=== PATIENT | male | born 1965 | race Caucasian/White ===

== ENCOUNTER 2021-10-22 07:52 | Day surgery (SDC) | payer OTHER, SELFPAY ==
[2021-10-18 10:07] VITALS: BMI 29.7
--- NOTE | 2021-10-21 08:55 | HO.ANESPROP2 ---
Documented by User: Avril Street NP 10/21/21 08:59 HPI - Anesthesia Eval Consult details Narrative: 56yo M for Upper Endoscopy [facility] Past Medical History Medical History Arthritis Diabetes GERD (gastroesophageal reflux disease) Hx of fracture of femur Hyperlipidemia Neuropathy PVC (premature ventricular contraction) Retinopathy Surgical History Surgical History History of exploratory laparotomy History of incisional hernia repair Hx of colonoscopy Hx of right knee surgery Social History Social History Patient Tobacco Use Status: Never used Tobacco Use of substances other than those prescribed or required for medical reasons: No Are you DNR?: No Advance Directives: No Advance Directives Information Provided: Yes Meds Allergies Allergy/AdvReac Type Severity Reaction Status Date / Time No Known Allergies Allergy Verified 10/21/21 07:25 Home Medications Medication Instructions Recorded Confirmed Last Taken Type Centrum 10/18/21 Unknown History amlodipine 10 mg tablet 1 tab PO DAILY 10/18/21 10/18/21 Unknown History aspirin 81 mg chewable tablet 81 mg PO DAILY 10/18/21 10/18/21 Unknown History atorvastatin 10 mg tablet 1 tab PO DAILY 10/18/21 10/18/21 Unknown History insulin glargine 100 unit/mL (3 32 subcut 10/18/21 Unknown History mL) subcutaneous pen (Basaglar KwikPen U-100 Insulin) insulin lispro 100 unit/mL ea subcut 10/18/21 Unknown History subcutaneous pen (Humalog KwikPen (U-100) Insulin) irbesartan 75 mg tablet 1 tab PO DAILY 10/18/21 10/18/21 Unknown History liraglutide 0.6 mg/0.1 mL (18 mg/3 1.8 mg subcut DAILY 10/18/21 10/18/21 Unknown History mL) subcutaneous pen injector (Victoza 3-Dennys) metformin 500 mg tablet,extended 4 tab PO DAILY 10/18/21 10/18/21 Unknown History release 24 hr omega 3-oyw-xwx-fish oil 1,000 mg 1 cap PO BID 10/18/21 10/18/21 Unknown History (120 mg-180 mg) capsule (Fish Oil) omeprazole 20 mg capsule,delayed 1 cap PO DAILY 10/18/21 10/18/21 Unknown History release omeprazole 20 mg capsule,delayed 20 mg PO DAILY 10/18/21 10/18/21 Unknown History release tadalafil 5 mg tablet 1 tab PO DAILY 10/18/21 10/18/21 Unknown History tamsulosin 0.4 mg capsule 1 cap PO BEDTIME 10/18/21 10/18/21 Unknown History valacyclovir 1 gram tablet 2 tab PO BID 10/18/21 10/18/21 Unknown History Exam Exam Date and Time: October 21, 2021 0855 Height,Weight and Vital Signs: Height 6 ft Weight 99.337 kg Narrative Narrative: EKG 06/2021 SR with occ PVC @ 79 LAD ECHO 07/2021 Hyperdynamic LV sys function (EF 65-75%) No signif WMA Nml LV diastolic function Nml size LV. Mild increased LV wall thickness Nml RV systolic function. Nml RV size No significant valve abn Assessment and Plan Assessment Anesthesia Assessment: Chart Reviewed Documented by User: Lon Hobbs MD 10/22/21 09:41 HPI - Anesthesia Eval Consult details Narrative: 56yo M for Upper Endoscopy recently saw cardiology , got worked up for palpitations including ECHO and Holtor's . As per patient was possibly secondary electrolyte abnormalities and improved after correction . Patient to follow-up with cardiology in 1 year . [facility] Past Medical History Medical History Arthritis Diabetes GERD (gastroesophageal reflux disease) Hx of fracture of femur Hyperlipidemia Neuropathy PVC (premature ventricular contraction) Retinopathy Family History Family history of problems with anesthesia: No Surgical History Surgical History History of exploratory laparotomy History of incisional hernia repair Hx of colonoscopy Hx of right knee surgery History of Problems with Anesthesia: No Social History Social History Patient Tobacco Use Status: Never used Tobacco Use of substances other than those prescribed or required for medical reasons: No Are you DNR?: No Advance Directives: No Advance Directives Information Provided: Yes Meds Allergies Allergy/AdvReac Type Severity Reaction Status Date / Time No Known Allergies Allergy Verified 10/21/21 07:25 Home Medications Medication Instructions Recorded Confirmed Last Taken Type Centrum 10/18/21 Unknown History amlodipine 10 mg tablet 1 tab PO DAILY 10/18/21 10/18/21 Unknown History aspirin 81 mg chewable tablet 81 mg PO DAILY 10/18/21 10/18/21 Unknown History atorvastatin 10 mg tablet 1 tab PO DAILY 10/18/21 10/18/21 Unknown History insulin glargine 100 unit/mL (3 32 subcut 10/18/21 Unknown History mL) subcutaneous pen (Basaglar KwikPen U-100 Insulin) insulin lispro 100 unit/mL ea subcut 10/18/21 Unknown History subcutaneous pen (Humalog KwikPen (U-100) Insulin) irbesartan 75 mg tablet 1 tab PO DAILY 10/18/21 10/18/21 Unknown History liraglutide 0.6 mg/0.1 mL (18 mg/3 1.8 mg subcut DAILY 10/18/21 10/18/21 Unknown History mL) subcutaneous pen injector (Victoza 3-Dennys) metformin 500 mg tablet,extended 4 tab PO DAILY 10/18/21 10/18/21 Unknown History release 24 hr omega 7-elu-kxu-fish oil 1,000 mg 1 cap PO BID 10/18/21 10/18/21 Unknown History (120 mg-180 mg) capsule (Fish Oil) omeprazole 20 mg capsule,delayed 1 cap PO DAILY 10/18/21 10/18/21 Unknown History release omeprazole 20 mg capsule,delayed 20 mg PO DAILY 10/18/21 10/18/21 Unknown History release tadalafil 5 mg tablet 1 tab PO DAILY 10/18/21 10/18/21 Unknown History tamsulosin 0.4 mg capsule 1 cap PO BEDTIME 10/18/21 10/18/21 Unknown History valacyclovir 1 gram tablet 2 tab PO BID 10/18/21 10/18/21 Unknown History Exam Airway Mallampati Class: IV TM Dist: >3cm Neck ROM: Full Loose/Missing/Broken Teeth: Yes (Poor dentition ) Heart: S1,S2 Lungs: b/l breath sounds Assessment and Plan Assessment Anesthesia Assessment: Anesthesia Plan Discussed Final Anesthetic Review Family History of Problems with Anesthesia: No History of Problems with Anesthesia: No NPO: Yes ASA Class: III Final Preanesthetic Review: Meds/Allgs Chart Reviewed, Consent Obtained/Reviewed and Anes Risks/Benef Reviewed Patient Risk: High Procedure Risk: Intermediate Anesthetic Plan Anesthetic Plan: MAC: Disposition: Standard PACU
[2021-10-22 08:05] VITALS: BMI 27.8
[2021-10-22 08:22] VITALS: BP 129/75; PULSE 80; RESP 17; TEMP 36.6; O2SAT 98
[2021-10-22 08:25] LABS: Glucose, Whole Blood 126 mg/dL (60-115)
[2021-10-22] MEDS: Lactated Ringers 1,000 ML 100 ML IVCONT (08:35)
--- NOTE | 2021-10-22 08:56 | MHC.SHP ---
Pre-Procedural Eval Section A Date of Service: 10/22/21 Section B Chief Complaint: reflux Details of Present Illness: see H&P no changes Relevant Family History (Specify if Yes): No Relevant Social History: None (see H&P) Present Medications: see Short Stay Collaborative assessment Medical History: Significant History History of Previous Operations: Relevant previous surgery/procedure and date(s) Allergies: Allergies Allergy/AdvReac Type Severity Reaction Status Date / Time No Known Allergies Allergy Verified 10/21/21 07:25 Review of Systems Sugical H&P ROS: Negative: Constitution, Cardiovascular, Respiratory, Neurological, Psychiatric, Hem-Onc, Allergic/Immunologic, Gastrointestinal, Genitourinary, Musculoskeletal, Integumentary, Endocrine and Eyes/Ears/Nose/Throat Exam Surgical H&P Exam: Normal: HEENT, Normal: Heart, Normal: Lungs, Normal: Extremities, Normal: Abdomen, Normal: Skin and Normal: Neurological Plan I have reviewed the history and physical and performed a pertinent physical examination on my patient. No changes have occurred unless specified.
--- NOTE | 2021-10-22 09:16 | P.BOP_ITS ---
Brief Operative Note Date of Service: 10/22/21 Pre-op diagnosis: gerd Post-op diagnosis: same Procedure: egd Surgeon: Kulwant León Anesthesia: MAC Was an Animal Cruelty Investigation Supervisor used for this Procedure?: No Estimated blood loss (mL): 2 Pathology: other (bxs antrum and egj) Condition: stable Disposition: PACU
[2021-10-22 09:20] VITALS: BP 126/51; PULSE 79; RESP 16; TEMP 36.1; O2SAT 99
[2021-10-22 09:35] VITALS: BP 129/71; PULSE 82; RESP 18; TEMP 36.1; O2SAT 98
--- NOTE | 2021-10-22 21:02 | OP_ITS ---
SURGEON: Kulwant León MD INDICATIONS: Gastroesophageal reflux disease. PREOPERATIVE DIAGNOSIS: POSTOPERATIVE DIAGNOSIS: PROCEDURE PERFORMED: Upper endoscopy with biopsy. ESTIMATED BLOOD LOSS: COMPLICATIONS: ANESTHESIA: ASSISTANTS: SPECIMENS: MEDICATIONS: Monitored anesthesia care. DESCRIPTION OF PROCEDURE: History and physical was performed. The risks and benefits of the procedure were explained to the patient. Informed consent was obtained. The patient was placed in left lateral decubitus position. The Olympus video gastroscope was introduced into the esophagus, stomach, and duodenum. Examination was performed and the scope was removed. He tolerated the procedure well and was returned to recovery area in stable condition. FINDINGS: 1. Esophagus: The esophagus was normal. There was no esophagitis. Biopsies were obtained from the EG junction. 2. Stomach: The stomach showed no evidence of masses, ulcers, or polyps. Antral biopsies were obtained to rule out H pylori. 3. Duodenum: The bulb and second portion were normal. IMPRESSION: Gastroesophageal reflux disease. RECOMMENDATIONS: Follow up the biopsy results. MD PEG Guerin/MISSYL / [id number]
== END 2021-10-22 10:25 | disposition home or self-care (01) ==
PROVIDERS: PCP Physician Assistant; Visit Provider Internal Medicine Gastroenterology
PROC: 0DJ08ZZ Inspection of Upper Intestinal Tract, Via Natural or Artificial Opening Endoscopic (ICD-10-PCS; CPT 43235; principal; 2021-10-22 09:00)
DX: K21.9 Gastro-esophageal reflux disease without esophagitis (principal); R68.81 Early satiety; K22.70 Barrett's esophagus without dysplasia; I49.3 Ventricular premature depolarization; E78.5 Hyperlipidemia, unspecified; E11.319 Type 2 diabetes mellitus with unspecified diabetic retinopathy without macular edema; E11.40 Type 2 diabetes mellitus with diabetic neuropathy, unspecified; Z79.4 Long term (current) use of insulin; Z79.899 Other long term (current) drug therapy; Z79.82 Long term (current) use of aspirin; Z98.890 Other specified postprocedural states
CPT/HCPCS: 43239; 82947; 88305; 88342; J3010

== ENCOUNTER 2024-05-03 10:35 | Day surgery (SDC) | payer OTHER, SELFPAY ==
--- OUTSIDE RECORDS SUMMARY | 2024-04-17 14:27 | XMS_ITS ---
Author Organization [facility] Address [address] [place] [address] Care Team Providers Care Associate Professor Of Sociology Name Role Phone LETITIA FRAGA Primary Care Provider Kulwant Ch Jr [phone] ALLERGIES No Known Allergies REASON FOR VISIT Patient presents today for an EGD/barretts MEDICATIONS Medication SIG (Take, Route, Frequency, Duration) Notes Start Date End Date Status metFORMIN HCl 500 MG 1 tablet with a lino l Orally Once a day for 30 day(s) Active Ozempic (0.25 or 0.5 MG/DOSE) 2 MG/3ML INJECT 0.5MG UNDER THE SKIN EVERY 7 DAYS Subcutaneous for 28 Active Irbesartan 150 MG 1 tablet Orally Once a day for 30 day(s) 04/15/2024 Active MiraLax (colon prep) 17 GM/SCOOP mixed with Gatorade or Crystal Light Orally begin at 5:00 p.m. the day before the procedure for 1 day 04/15/2024 Active CoQ-10 150 MG as directed Orally Active Magnesium 500 MG 1 tablet with a meal Orally Once a day for 30 day(s) Active Centrum Adults - as directed Orally Active Tadalafil 5 MG 1 tablet as needed Orally Once a day Active Atorvastatin Calcium 10 MG 1 tablet Orally Once a day Active Lantus 100 UNIT/ML as directed Subcutaneous Active Omeprazole 20 MG 1 capsule 30 minutes before morning meal Orally Once a day for 30 day(s) Active Aspirin 81 81 MG 1 tablet Orally Once a day for 30 day(s) Active Fish Oil 1000 MG 1 capsule Orally Onc e a day for 30 day(s) twice a day Active Ozempic (1 MG/DOSE) 4 MG/3ML as directed Subcutaneous Active HumaLOG 100 UNIT/ML as directed Subcutaneous Active IMMUNIZATIONS Vaccine Route Administration Date Status Comme nts Influenza Unknown 04/15/2024 Refused SOCIAL HISTORY Tobacco Use: Social History Observation Description Date Details (start date - stop date) Never Smoker NA - NA Sex Assigned At : Social History Observation Description Sex Assigned At Unknown Tobacco Use/Smoking Question Answer Notes Patient is a nonsmoker Alcohol Screen Question Answer Notes Did you have a drink contain ing alcohol in the past year? Yes How often did you have a dri nk containing alcohol in the past year? 4 or more times a week (4 points) How many drinks did you have on a typical day when you were drinking in the past year? 1 or 2 drinks (0 point) How often did you have 6 or more drinks on one occasion in the past year? Monthly (2 points) Points 6 Interpretation Positive PROBLEMS Problem Type ICD Code Onset Dates Problem Status W/U Status Risk SNOMED Code Notes Problem Colon cancer screening (Z12.11) Active confirmed 482634711 VITAL SIGNS BMI 31.33 kg/m2 04/15/2024 Blood pressure systolic 000 mm Hg 04/15/19 25 Blood pressure diastolic 00 mm Hg 025 Height 72 in 04/15/2024 Temperature 97.5 degrees Fahrenheit 04/15/19 25 Weight 231 lbs 04/15/2024 Encounters Encounter Location Date Provider Diagnosis [facility] [address] [facility] [address] [place] [id number] 04/15/2024 Kulwant León Jr Gastroesophageal reflux disease, unspecified whether esophagitis present K21.9 and Colon cancer screening Z12.11 ASSESSMENTS Encounter Date Diagnosis Assessment Notes Treatment Notes Treatment Clinical Notes 04/15/2024 Gastroesophageal reflux disease, unspecified whether esophagitis present (ICD-10 - K21.9) Colonoscopy material was printed 04/15/2024 Colon cancer screeni ng (ICD-10 - Z12.11) PLAN OF TREATMENT Medication Medication Name Sig Start Date Stop Date Notes MiraLax (colon prep) 17 GM/SCOOP mixed with Gatorade or Crystal Light Orally begin at 5:00 p.m. the day before the procedure for 1 day 04/15/2024 Treatment Notes Assessment Notes Gastroesophageal reflux dise ase, unspecified whether esophagitis present Colonoscopy material was printed Future Test Test Name Order Date UPPER GI ENDOSCOPY 04/15/2024 COLONOSCOPY 04/15/2024 Next Appt Details Provider Name:Kulwant shaikh Jr, 05/03/2024 12:20:00 PM, [address] [place] [address] , [place], [place], [phone],
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
--- OUTSIDE RECORDS SUMMARY | 2024-04-17 14:28 | XMS_ITS ---
Author Organization [facility] Address [address] [place] [address] Care Team Providers Care Medical Biller Name Role Phone Fuad Hooper Primary Care Provider Gifty Strong [phone] REASON FOR VISIT r/s 12/21 Encounters Encounter Location Date Provider Diagnosis [facility] [address] [place] [address] 12/05/2023 Gifty Pinzon Plan Of Treatment Next Appt Details Provider Name:Gifty Pinzon , 01/21/2025 01:30:00 PM, [address] [facility], [place], [address], Progress Notes * Lesley RGOB:1965 (58 yo M)Acc No.[id number]:12/05/2023 Patient:?Rafiq Rg :1965???Age:58 Y???Sex:Male [address] [facility] [place] [address] * true * Date:? Generated for Printi mansoor/Rosalba/eTransmitting on:?04/17/2024 02:28 PM EST
--- OUTSIDE RECORDS SUMMARY | 2024-04-17 14:28 | XMS_ITS ---
Author Organization [facility] Address [address] [place] [address] Care Team Providers Care Road Monkey Name Role Phone LETITIA FRAGA Primary Care Provider Dm León Jr, Kulwant Meyers REASON FOR VISIT Patient presents today for egd, barretts esophagus Encounters Encounter Location Date Provider Diagnosis [facility] [address] [place] [phone] 12/29/2023 Kulwant León Jr PLAN OF TREATMENT Next Appt Details Provider Name:Kulwant shaikh Jr, 05/03/2024 12:20:00 PM, [address] [place] [address] , [place], [place], [phone],
--- OUTSIDE RECORDS SUMMARY | 2024-04-17 14:28 | XMS_ITS ---
Author Organization [facility] Address [address] [place] [address] Care Team Providers Care Highway Patrol Pilot Name Role Phone Fuad Hooper Primary Care Provider Unavailabl e Black, Gifty Unavailable [phone] Allergies No Known Allergies REASON FOR VISIT At Risk Footcare, Painful Nail(s) aggrevated by shoes and causing difficulty standing/walking. Medications Medication SIG (Take, Route, Frequency, Duration) Notes Start Date End Date Status Curcumin 95 Active Omeprazole 20 MG 1 capsule 30 minutes before morning meal Orally Once a day for 30 day(s) Active Irbesartan 75 MG 2 tablets Orally Onc e a day for 30 day(s) Active Tadalafil 5 MG 1 tablet as needed Orally Once a day for 30 day(s) Active Aspir-81 Active Co Q 10 Active Fish Oil Active Magnesium Active Mens Multivitamin Ac tive Cephalexin Not-Takin g Basaglar KwikPen Act lillian Victoza Active metFORMIN HCl 500 MG 1 tablet with a lino l Orally Once a day for 30 day(s) Active Terbinafine HCl 250 MG 1 tablet Orally O nce a day for 7 days days then stop for 3 weeks repeat cycle for 60 days 12/05/2023 Not-Taking Terbinafine HCl 250 MG 1 tablet Orally O nce a day for 7 days days then stop for 3 weeks repeat cycle for 90 days 01/24/2023 Not-Taking HumaLOG Active Atorvastatin Calcium 10 MG 1 tablet Orally Once a day for 30 day(s) Active Social History Tobacco Use: Social History Observation Description Date Details (start date - stop date) Never Smoker NA - NA Tobacco Use/Smoking Question Answer Notes Are you a: nonsmoker Additional Findings: Tobacco Non-User Current no n-smoker Alcohol Screen Question Answer Notes Did you have a drink contain ing alcohol in the past year? Yes How often did you have a dri nk containing alcohol in the past year? 2 to 4 times a month (2 points) Points 2 Interpretation Negative Tobacco use other than smoking: Question Answer Notes Are you an other tobacco user? No Vital Signs Weight 221 lbs 02/06/2024 Encounters Encounter Location Date Provider Diagnosis [facility] [address] [facility] [place] [address] 02/06/2024 Gifty Pinzon Onychomycosis B35.1 ; Type 2 diabetes mellitus with diabetic polyneuropathy E11.42 and Foot drop, right M21.371 Assessments Encounter Date Diagnosis (ICD Code) Assessment Notes Treatment Notes Treatment Clinical Notes Section Notes 02/06/2024 Onychomycosis (ICD-10 - B35.1) Response to treatment - resolved 02/06/2024 Type 2 diabetes mellitus with diabetic polyneuropathy (ICD-10 - E11.42) 02/06/2024 Foot drop, right (ICD-10 - M21.371) Plan Of Treatment Next Appt Details Follow Up: 1 Year, Reason: Provider Name:Gifty Pinzon , 01/21/2025 01:30:00 PM, [address], [place], [address], Progress Notes * Lesley RGOB:1965 (58 yo M)Acc No.[id number]:02/06/2024 Progress Note Patient:?Baldev Rafiq Provider:?Gifty Pinzon DPM :1965???Age:58 Y???Sex:Male Gabo e:02/06/2024 Address:[address] [place], [place] [address] [id number] Pcp:Fuad Hooper Subjective: * Chief Complaints: * ???At Risk FootcarePainful N ail(s) aggrevated by shoes and causing difficulty standing/walking. * HPI: ???At Risk footcare:?Pt States Last PCP Visit:?Date?12/27/2023 ???Painful Nails:?Pt States Last PCP Visit:?Date:?12/27/2023 ?Treatments:?Lamisil , Oral Antifungal , was? successful.? * ROS:?General/Constitutional:?Nausea?denies.?Vomiting?denies.?Hunger Thirst?denies.?Loss appetite?denies.?Chills?denies.?Fatigue?denies.?Fever?denies.?Night Sweats?denies.?Unexplained weight loss?denies.?Unexplained weight gain?denies.?HEENTM:?Dentures?denies.?Dizziness?denies.?Glasses/contacts?admits.?Retinopathy?de nies.?Blurred/double vision?denies.?TMJ?denies.?Discharge/drainage?denies.?Implants?denies.?Sore throat?denies.?Dental implants?denies.?Hard of hearing ?denies.?Difficulty chewing/swallowing/speaking?denies.?Nose bleeds?denies.?Sore mouth?denies.?Respiratory:?On Oxygen?denies.?Pneumonia/pleurisy?denies.?Bronchitis?denies.?Emphysema?denies.?C oughing?denies.?Cough blood?denies.?Shortness of breath?denies.?Wheezing?denies.?Cardiovascular:?Pacemaker?denies.?MVP?denies.?WPW?denies.?CHF?denies.?Heart attack?denies.?Septal defect?denies.?Rapid beat?denies.?Chest pain ?denies.?Atrial Fib.?denies.?Murmur/Palpitations?denies.?Gastrointestinal:?Hemorrhoids?denies.?Stomach/Abdominal pain?denies.?Dark blood stool?denies.?Irritable bowel ?denies.?Constipation?denies.?Diarrhea?denies.?Hematology:?Swelling?denies.?Clots?denies.?Varicose Veins?denies.?Bruising?denies.?Bleeding problem?denies.?Genitourinary:?Blood urine?denies.?Frequent/Painfu/urination/bladder control?denies.?Kidney stones?denies.?Infection (UTI)?denies.?Nephropathy?denies.?sex trans dis (STD)?denies.?Prostate?denies.?Musculoskeletal:?Hammertoes?denies.?Bunions?denies.?Back Pain?denies.?Muscle Cramps/ Resting?denies.?Muscle cramps / walking?denies.?Generalized aches and pains?denies.?Weakness?denies.?Integ.:?Winter?denies.?Scars?denies.?Corns/calluses?denies.?Ingrown nails?denies.?Painful nails?admits.?Open Sores?denies.?Rashes?denies.?Neurologic:?Difficulty sleeping?denies.?Brain disorder?denies.?Numbness?denies.?Balance trouble?denies.?Confusion?denies.?Fainting/blackouts?denies.?Tingling?denies.?Tr emors?denies.? * Medical History:? * Surgical History:?knee surge ry, right 04/1991femur 02/2021hernia ppendectomy ight knee replacement 04/2023 * Hospitalization/Major Diagno stic Procedure:?Wing severe stomach pain 07/2023 * Family History:?Mother: angela braxton, poor circulation, diagnosed with Diabetic - NIDDM, Unspecified essential hypertension.?Father: , diagnosed with Diabetic - NIDDM, Unspecified essential hypertension, Unspecified heart disease, Unspecified cerebral artery occlusion with cerebral infarction.?Spouse: alive.?Siblings: diagnosed with Diabetic - NIDDM.? * Social History:?Tobacco Use:?Tobacco Use/Smoking?Are you a:?nonsmoker ?Additional Findings: Tobacco Non-User?Current non-smoker ?Tobacco use other than smoking?Are you an other tobacco user??No ???Drugs/Alcohol:?Drugs?Have you used drugs other than those for medical reasons in the past 12 months??No ?Alcohol Screen?Did you have a drink containing alcohol in the past year??Yes ?How often did you have a drink containing alcohol in the past year??2 to 4 times a month (2 points) ?Points?2 ?Interpretation?Negative ???Miscellaneous:?Caffeine: yes, 1-2 cups per day. ?no Exercise. ?Marital status: . 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 * Medications:?TakingFish Oil Co Q 10 Magnesium Mens Multivitamin Curcumin 95 Irbesartan 75 MG Tablet 2 tablets Orally Once a dayOmeprazole 20 MG Capsule Delayed Release 1 capsule 30 minutes before morning meal Orally Once a dayAspir-81 Tadalafil 5 MG Tablet 1 tablet as needed Orally Once a dayAtorvastatin Calcium 10 MG Tablet 1 tablet Orally Once a dayHumaLOG Victoza Basaglar KwikPen metFORMIN HCl 500 MG Tablet 1 tablet with a meal Orally Once a dayTaking Fish Oil Taking Co Q 10 Taking Magnesium Taking Mens Multivitamin Taking Curcumin 95 Taking Irbesartan 75 MG Tablet 2 tablets Orally Once a dayTaking Omeprazole 20 MG Capsule Delayed Release 1 capsule 30 minutes before morning meal Orally Once a dayTaking Aspir-81 Taking Tadalafil 5 MG Tablet 1 tablet as needed Orally Once a dayTaking Atorvastatin Calcium 10 MG Tablet 1 tablet Orally Once a dayTaking HumaLOG Taking Victoza Taking Basaglar KwikPen Taking metFORMIN HCl 500 MG Tablet 1 tablet with a meal Orally Once a dayNot-Taking/PRNTerbinafine HCl 250 MG Tablet 1 tablet Orally Once a day for 7 days days then stop for 3 weeks repeat cycleTerbinafine HCl 250 MG Tablet 1 tablet Orally Once a day for 7 days days then stop for 3 weeks repeat cycleCephalexin Medication List reviewed and reconciled with the patientNot-Taking/PRN Terbinafine HCl 250 MG Tablet 1 tablet Orally Once a day for 7 days days then stop for 3 weeks repeat cycleNot-Taking/PRN Terbinafine HCl 250 MG Tablet 1 tablet Orally Once a day for 7 days days then stop for 3 weeks repeat cycleNot-Taking/PRN Cephalexin Medication List reviewed and reconciled with the patient * Allergies:?N.K.D.A.yes[Aller gies Verified] Objective: * Vitals:?Wt:221, Shoe size:11 , BS:110, Wt-k.24 kg. * ???Past Orders: ???Lab:HEMOGLOBIN A1C (GLYCO HEMOGLOBIN) (Order Date - 12/04/2023) (Collection Date - 12/04/2023) ? Value Reference Range ?TOTAL HEMOGLOBIN (HGBA1C) 6.1 * Examination: ???Ophthalmology Referral: ?DIABETES EYE EXAM?General Examination: ?GENERAL APPEARANCE:?Reveals a pleasant, alert, well nourished, well- developed, well hydrated individual, who demonstrates proper attention to hygiene/body habitus, and is in no acute distress, Pt serves as own historian for office visit today.?ORIENTED:?person, place, and time.?Nails: ?NAILS are:?Elongated, overgrown, nondystrophic , 1-5 B/L no evidence of remaining fungus.?Neurological: ?SENSORY:?Neurological exam demonstrates , reduced sharp/dull pin prick discrimination , reduced vibration sensation , 5.07 monofilament test performed at plantar aspects of 5 varied sites per foot shows sensation , absent , right.?Vascular: ?DP PULSES(B):?2/4, B/L.?PT PULSES(B):?2/4, B/L.? Assessment: * Assessment: 1.?Type 2 diabetes mellitus with diabetic polyneuropathy - E11.42?2.?Onychomycosis - B35.1, Response to treatment - resolved?3.?Foot drop, right - M21.371? Plan: * Treatment: * Procedure Codes:? * Preventive Medicine:? ??Counseling:?Discussion:?-13: Office or other outpatient visit for the evaluation and management of an established patient, which required a medically appropriate history and/or examination and LOW level of DECISION MAKING for: 1 STABLE ACUTE UNCOMPLICATED PROBLEM, 2 OR MORE MINOR PROBLEMS, OR 1 STABLE CHRONIC PROBLEM, THAT POSE(S) A LOW RISK FOR MORBIDITY/MORTALITY. The visit on the day of the encounter encompassed interpreting the data and educating the patient as to the nature of their condition, treatment options available according to their individual PMH, meds, allergies, and overall health/living conditions, as well as any potential risks or complications that may occur from a failure to adhere to, and participate in, the recommended course of therapy. The discussion included a complete verbal, and/or written explanation of the examination results, any x-rays taken, the proposed diagnosis, and outline of the treatment plan. A schedule for future care needs was also explained. The patient verbalized an understanding of the instructions at this time and agreed to be an active participant in their treatment. If the patient should think of any questions or concerns after the visit, I have encouraged the patient to call the office.?Diabetic Footcare:?The patient was advised against future self nail/callus care due to inherent risks for infection, loss of limb/life given diabetes, neuropathy.?F/u Visit:?Patients podiatric issue has improved, they should call the office with any future issues or concerns.? * Follow Up:?1 Year * Images: * Sign off status: Completed true * Provider:?Gifty Pinzon DPM Date:?2023 Generated for Naila max/Rosalba/Sofia on:?04/17/2024 02:27 PM EST History and Physical Notes * HPI (History of Present Illness) Category Sub-Category Detail Notes Category Not es Painful Nails Treatments: Lamisil , Oral Antifungal , was successful Pt States Last PCP Visit: Date:: 12/27/2023 At Risk footcare Pt States Last PCP Visit: Date: 4 Examination Category Sub-Category Detail Notes Category Not es Ingrown Nail INSPECTION: Neurological SENSORY: Neurological exa m demonstrates , reduced sharp/dull pin prick discrimination , reduced vibration sensation , 5.07 monofilament test performed at plantar aspects of 5 varied sites per foot shows sensation , absent , right TINEL'S COMPRESSION: Dermatologic SKIN FINDINGS: General Examination GENERAL APPEARANCE: Reveals a pleasant, alert, well nourished, well-developed, well hydrated individual, who demonstrates proper attention to hygiene/body habitus, and is in no acute distress, Pt serves as own historian for office visit today ORIENTED: person, place, and t bryson Ophthalmology Referral DIABETES EYE EXAM Diabetic Reti nopathy Screening:: Yes 2023 Retinal Screening Performed:: Yes Vascular DP PULSES (B): 2/4, B/L PT PULSES (B): 2/4, B/L Nails NAILS are: Elongated, overg rown, nondystrophic , 1-5 B/L no evidence of remaining fungus
--- OUTSIDE RECORDS SUMMARY | 2024-04-17 14:28 | XMS_ITS ---
Author Organization [facility] Address [address] [place] [address] Care Team Providers Care Scenic Designer Name Role Phone LETITIA FRAGA Primary Care Provider Dm Lenó Jr, Kulwant Meyers REASON FOR VISIT r/s 12/28 appt Encounters Encounter Location Date Provider Diagnosis [facility] [address] [place] [phone] 12/27/2023 Kulwant León Jr PLAN OF TREATMENT Next Appt Details Provider Name:Kulwant shaikh Jr, 05/03/2024 12:20:00 PM, [address] [place] [address] , [place], [place], [phone],
--- OUTSIDE RECORDS SUMMARY | 2024-04-17 14:28 | XMS_ITS | Patient Health Record ---
Author Organization [facility] Address [address] [place] [address] Care Team Providers Care Blade Changer Name Role Phone LETITIA FRAGA Primary Care Provider Kulwant Ch Jr [phone] ALLERGIES No Known Allergies REASON FOR REFERRAL No Information MEDICATIONS Medication SIG (Take, Route, Frequency, Duration) Notes Start Date End Date Status metFORMIN HCl 500 MG 1 tablet with a lino l Orally Once a day for 30 day(s) Active Lantus 100 UNIT/ML as directed Subcutaneous Active Ozempic (0.25 or 0.5 MG/DOSE) 2 MG/3ML INJECT 0.5MG UNDER THE SKIN EVERY 7 DAYS Subcutaneous for 28 Active Omeprazole 20 MG 1 capsule 30 minutes before morning meal Orally Once a day for 30 day(s) Active Irbesartan 150 MG 1 tablet Orally Once a day for 30 day(s) 04/15/2024 Active Aspirin 81 81 MG 1 tablet Orally Once a day for 30 day(s) Active MiraLax (colon prep) 17 GM/SCOOP mixed with Gatorade or Crystal Light Orally begin at 5:00 p.m. the day before the procedure for 1 day 04/15/2024 Active Fish Oil 1000 MG 1 capsule Orally Onc e a day for 30 day(s) twice a day Active CoQ-10 150 MG as directed Orally Active Magnesium 500 MG 1 tablet with a meal Orally Once a day for 30 day(s) Active Centrum Adults - as directed Orally Active Tadalafil 5 MG 1 tablet as needed Orally Once a day Active Ozempic (1 MG/DOSE) 4 MG/3ML as directed Subcutaneous Active Atorvastatin Calcium 10 MG 1 tablet Orally Once a day Active HumaLOG 100 UNIT/ML as directed Subcutaneous Active IMMUNIZATIONS Vaccine Route Administration Date Status Comme nts Influenza Unknown 01/26/2021 Administered Influenza Unknown 04/15/2024 Refused SOCIAL HISTORY Tobacco [...] W/U Status Risk SNOMED Code Notes Problem Gastroesophageal reflux disease, unspecified whether esophagitis present (K21.9) Active confirmed 306570511 Problem Gastroesophageal reflux (K21.9) Active confirmed Esophageal reflux finding (456089265) Problem Colon cancer screening (Z12.11) Active confirmed 831689858 VITAL SIGNS Temperature 97.5 degrees Fahrenheit 04/15/2024 Blood pressure diastolic 00 mm Hg 04/15/2024 Height 72 in 04/15/2024 Blood pressure systolic 000 mm Hg 04/15/2024 Weight 231 lbs 04/15/2024 BMI 31.33 kg/m2 04/15/2024 Encounters Encounter Location Date Provider Diagnosis [facility] [address] [place] [phone] 12/29/2023 Kulwant León Jr [facility] [address] [place] [phone] 04/15/2024 Kulwant León Jr Gastroesophageal reflux disease, unspecified whether esophagitis present K21.9 and Colon cancer screening Z12.11 [facility] [address] [place] [phone] 12/27/2023 Kulwant León Jr ASSESSMENTS Encounter Date Diagnosis Assessment Notes Treatment Notes Treatment Clinical Notes 04/15/2024 Colon cancer screeni ng (ICD-10 - Z12.11) 04/15/2024 Gastroesophageal reflux disease, unspecified whether esophagitis present (ICD-10 - K21.9) Colonoscopy material was printed PLAN OF TREATMENT Future Test Test Name Order Date UPPER GI ENDOSCOPY 07/19/2021 UPPER GI ENDOSCOPY 04/15/2024 COLONOSCOPY 04/15/2024 Next Appt Details Provider Name:Kulwant shaikh , 05/03/2024 12:20:00 PM, [address] [place] [address] , [place], [place], [phone], Insurance Providers Payer Name Payer Address Payer Phone Subscriber Number Group Number Insured Name Patient Relationship to Insured Coverage Start Date Coverage End Date [facility] [address] [place] [address] [phone] [id number] RG RG Self - patient is the insured MEDICAL (GENERAL) HISTORY Medical History History ICD Code Diabetes mellitus type 2 with retinopath y and neuropathy Gastroesophageal reflux disease PVCs, cardiology appointment pending Arthritis Hyperlipidemia Colonoscopy 09/03/14, normal, ten-year fo llowup Surgical History Surgery Date(Month/Year) Incisional hernia repair 2021 Exploratory laparotomy small bowel resec tion 2018 Femur fracture with silver placement 2018 Right knee surgery 2011 right knee replacement appendectomy 08/01 Hospitalization History Reason Date(Month/Year)
--- OUTSIDE RECORDS SUMMARY | 2024-04-17 14:28 | XMS_ITS ---
Author Organization [facility] Address [address] [place] [address] Care Team Providers Care Heel Sprayer Name Role Phone Fuad Hooper Primary Care Provider Gifty Strong [phone] Encounters Encounter Location Date Provider Diagnosis [facility] [address] [place] [phone] 12/22/2023 Gifty Pinzon Plan Of Treatment Next Appt Details Provider Name:Gifty Pinzon , 01/21/2025 01:30:00 PM, [address] [facility] [place], [phone], Progress Notes * BALDEVCampos CEDILLODandreOB:1965 (58 yo M)Acc No.[id number]:12/22/2023 Progress Note Patient:?BALDEV Rafiq Provider:?Gifty Pinzon DPM :1965???Age:58 Y???Sex:Male Gabo e:12/22/2023 Address[address] [facility] [id number] Pcp:Fuad Hooper Subjective: * Chief Complaints: * ??? * Medical History:? Objective: * Vitals:? Assessment: Plan: * Treatment: * Images: * The named appointment provid er may or may not be the originator of this progress note, and it is not deemed complete until electronically signed by the appointment provider. Sign off status: Pending * Provider:Carolyn Pinzon DPM Date:?2023 Generated for Naila max/Rosalba/Sofia on:?04/17/2024 02:28 PM EST
--- OUTSIDE RECORDS SUMMARY | 2024-04-17 14:28 | XMS_ITS | Patient Health Record ---
Author Organization [facility] Address [address] [facility] [place] [address] Care Team Providers Care Operational Test Mechanic Name Role Phone Fuad Hooper Primary Care Provider Unavailabl e Black, Gifty Unavailable [phone] Allergies No Known Allergies Results Component Value Reference Range Notes HEMOGLOBIN A1C (GLYCOHEMOGLO BIN) Reviewed date:02/06/2024 03:41:12 PM Interpretation: Performing Lab: Notes/Report: TOTAL HEMOGLOBIN (HGBA1C) 6.1 Reason For Referral No Information Medications Medication SIG (Take, Route, Frequency, Duration) Notes Start Date End Date Status HumaLOG Active Atorvastatin Calcium 10 MG 1 tablet Orally Once a day for 30 day(s) Active Co Q 10 Active Basaglar KwikPen Act lillian Fish Oil Active Victoza Active Magnesium Active metFORMIN HCl 500 MG 1 tablet with a lino l Orally Once a day for 30 day(s) Active Curcumin 95 Active Terbinafine HCl 250 MG 1 tablet Orally O nce a day for 7 days days then stop for 3 weeks repeat cycle for 60 days 12/05/2023 Not-Taking Mens Multivitamin Ac tive Terbinafine HCl 250 MG 1 tablet Orally O nce a day for 7 days days then stop for 3 weeks repeat cycle for 90 days 01/24/2023 Not-Taking Omeprazole 20 MG 1 capsule 30 minutes before morning meal Orally Once a day for 30 day(s) Active Irbesartan 75 MG 2 tablets Orally Onc e a day for 30 day(s) Active Cephalexin Not-Takin g Tadalafil 5 MG 1 tablet as needed Orally Once a day for 30 day(s) Active Aspir-81 Active Immunizations Vaccine Route Administration Date Status Comme nts Influenza Unknown 02/17/2023 Administered Social History Tobacco Use: Social History Observation [...] Are you an other tobacco user? No Problems Problem Type SNOMED Code ICD Code Onset Dates Problem Status W/U Status Risk Notes Problem Polyneuropathy due to type 2 diabetes mellitus (116582511) Type 2 diabetes mellitus with diabetic polyneuropathy (E11.42) Active confirmed Vital Signs Height 6ft in 08/11/2023 Weight 221 lbs 02/06/2024 BMI 31.19 kg/m2 08/11/2023 Encounters Encounter Location Date Provider Diagnosis [facility] [address] 08/11/2023 Gifty Black Onychomycosis B35.1 ; Ingrown nail L60.0 ; Pain of toe of right foot M79.674 ; Type 2 diabetes mellitus with diabetic polyneuropathy E11.42 and Foot drop, right M21.[address] [address] 02/06/2024 Gifty Black Onychomycosis B35.1 ; Type 2 diabetes mellitus with diabetic polyneuropathy E11.42 and Foot drop, right M21.[address] [address] 12/05/2023 [facility] [address] [place] [address] 12/05/2023 Gifty Pinzon Assessments Encounter Date Diagnosis (ICD Code) Assessment Notes Treatment Notes Treatment Clinical Notes Section Notes 08/11/2023 Ingrown nail (ICD-10 - L60.0) 08/11/2023 Onychomycosis (ICD-10 - B35.1) 02/06/2024 Type 2 diabetes mellitus with diabetic polyneuropathy (ICD-10 - E11.42) 02/06/2024 Onychomycosis (ICD-10 - B35.1) Response to treatment - resolved 02/06/2024 Foot drop, right (ICD-10 - M21.371) 08/11/2023 Pain of toe of right foot (ICD-10 - M79.674) 08/11/2023 Type 2 diabetes mellitus with diabetic polyneuropathy (ICD-10 - E11.42) 08/11/2023 Foot drop, right (ICD-10 - M21.371) Plan Of Treatment Pending Test Test Name Order Date *Liver Function Test (LFT) 12/27/2022 Nail Panel 11/25/2022 Next Appt Details Provider Name:Gifty Pinzon , 01/21/2025 01:30:00 PM, [address] [facility], [place], [address], Insurance Providers Payer Name Payer Address Payer Phone Subscriber Number Group Number Insured Name Patient Relationship to Insured Coverage Start Date Coverage End Date [facility] [id number] [address] [place] [address] [id number] Rafiq De Paz Self - patient is the insured Medical (General) History Medical History History ICD Code Arthritis Back,Hip,and Knee pain covid-19 Diabetic High blood pressure Chicken pox Neuropathy Surgical History Surgery Date(Month/Year) knee surgery, right 04/1991 femur 02/2021 hernia 07/2021 appendectomy 07/2023 right knee replacement 04/2023 Hospitalization History Reason Date(Month/Year) Wing severe stomach pain 07/2023
--- NOTE | 2024-05-02 09:32 | HO.ANESPROP2 ---
Documented by User: Avril Street NP 05/02/24 09:32 HPI - Anesthesia Eval Consult details Narrative: 58yo M for Upper Endoscopy and Colonoscopy FORMERLY [facility], [facility] Past Medical History Medical History HTN (hypertension) Hx of fracture of femur Hyperlipidemia Arthritis PVC (premature ventricular contraction) GERD (gastroesophageal reflux disease) Retinopathy Neuropathy Diabetes Family History Family history of problems with anesthesia: No Surgical History Surgical History Total knee replacement status H/O endoscopy History of appendectomy Hx of right knee surgery History of exploratory laparotomy History of incisional hernia repair Hx of colonoscopy History of Problems with Anesthesia: No Social History Social History Are you a primary customer care representative to a significant other at home: No Do you presently have visiting nurse or other home services: No Patient Tobacco Use Status: Never used Tobacco Meds Allergies Allergy/AdvReac Type Severity Reaction Status Date / Time No Known Allergies Allergy Verified 05/03/24 11:49 Home Medications ?Medication ?Instructions ?Recorded ?Confirmed ?Last Taken ?Type Centrum 1 tab PO DAILY 10/18/21 05/03/24 Unknown History aspirin 81 mg chewable tablet 81 mg PO DAILY 10/18/21 05/03/24 04/26/24 History atorvastatin 10 mg tablet 1 tab PO DAILY 10/18/21 05/03/24 Unknown History insulin glargine 100 unit/mL (3 42 unit subcut DAILY 10/18/21 05/03/24 05/02/24 20:00 History mL) subcutaneous pen (Lantus 21 units Solostar U-100 Insulin) insulin lispro 100 unit/mL See Rx Instructions .Route .COMPLEX 10/18/21 05/03/24 05/02/24 17:00 History subcutaneous pen (Humalog KwikPen 10 units (U-100) Insulin) irbesartan 75 mg tablet 150 mg PO DAILY 10/18/21 05/03/24 05/02/24 History metformin 500 mg tablet,extended 4 tab PO DAILY 10/18/21 05/03/24 05/02/24 History release 24 hr omega 3-dhj-uyy-fish oil 1,000 mg 1 cap PO BID 10/18/21 05/03/24 04/26/24 History (120 mg-180 mg) capsule (Fish Oil) omeprazole 20 mg capsule,delayed 40 mg PO DAILY 10/18/21 05/03/24 Unknown History release tadalafil 5 mg tablet 1 tab PO DAILY 10/18/21 05/03/24 Unknown History valacyclovir 1 gram tablet 2 tab PO BID 10/18/21 05/03/24 Unknown History semaglutide 1 mg/dose (4 mg/3 mL) mg subcut 05/02/24 04/25/24 History subcutaneous pen injector (Ozempic) Assessment and Plan Assessment Anesthesia Assessment: Chart Reviewed Final Anesthetic Review Family History of Problems with Anesthesia: No History of Problems with Anesthesia: No Documented by User: Nancy Allen MD 05/03/24 12:29 FORMERLY [facility], [facility] Past Medical History Medical History HTN (hypertension) Hx of fracture of femur Hyperlipidemia Arthritis PVC (premature ventricular contraction) GERD (gastroesophageal reflux disease) Retinopathy Neuropathy Diabetes Surgical History Surgical History Total knee replacement status H/O endoscopy History of appendectomy Hx of right knee surgery History of exploratory laparotomy History of incisional hernia repair Hx of colonoscopy Social History Social History Are you a primary customer care representative to a significant other at home: No Do you presently have visiting nurse or other home services: No Patient Tobacco Use Status: Never used Tobacco Meds Allergies Allergy/AdvReac Type Severity Reaction Status Date / Time No Known Allergies Allergy Verified 05/03/24 11:49 Home Medications ?Medication ?Instructions ?Recorded ?Confirmed ?Last Taken ?Type Centrum 1 tab PO DAILY 10/18/21 05/03/24 Unknown History aspirin 81 mg chewable tablet 81 mg PO DAILY 10/18/21 05/03/24 04/26/24 History atorvastatin 10 mg tablet 1 tab PO DAILY 10/18/21 05/03/24 Unknown History insulin glargine 100 unit/mL (3 42 unit subcut DAILY 10/18/21 05/03/24 05/02/24 20:00 History mL) subcutaneous pen (Lantus 21 units Solostar U-100 Insulin) insulin lispro 100 unit/mL See Rx Instructions .Route .COMPLEX 10/18/21 05/03/24 05/02/24 17:00 History subcutaneous pen (Humalog KwikPen 10 units (U-100) Insulin) irbesartan 75 mg tablet 150 mg PO DAILY 10/18/21 05/03/24 05/02/24 History metformin 500 mg tablet,extended 4 tab PO DAILY 10/18/21 05/03/24 05/02/24 History release 24 hr omega 1-jwh-qqg-fish oil 1,000 mg 1 cap PO BID 10/18/21 05/03/24 04/26/24 History (120 mg-180 mg) capsule (Fish Oil) omeprazole 20 mg capsule,delayed 40 mg PO DAILY 10/18/21 05/03/24 Unknown History release tadalafil 5 mg tablet 1 tab PO DAILY 10/18/21 05/03/24 Unknown History valacyclovir 1 gram tablet 2 tab PO BID 10/18/21 05/03/24 Unknown History semaglutide 1 mg/dose (4 mg/3 mL) mg subcut 05/02/24 04/25/24 History subcutaneous pen injector (Ozempic) Exam Airway Mallampati Class: III TM Dist: >3cm Neck ROM: Full Loose/Missing/Broken Teeth: No Heart: RRR Lungs: CTA Assessment and Plan Assessment Anesthesia Assessment: Anesthesia Plan Discussed Final Anesthetic Review NPO: No ASA Class: III Final Preanesthetic Review: Meds/Allgs Chart Reviewed, Consent Obtained/Reviewed and Anes Risks/Benef Reviewed Patient Risk: Intermediate Procedure Risk: Intermediate Anesthetic Plan Anesthetic Plan: MAC: Disposition: Standard PACU
[2024-05-03 11:58] VITALS: BP 147/79; PULSE 75; RESP 16; TEMP 36.8; O2SAT 97; BMI 30.5
--- OUTSIDE RECORDS SUMMARY | 2024-05-03 12:02 | XMS_ITS | Data Portability ---
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 Lab None recorded. Referral None recorded. Procedures None recorded. Surgeries orthopaedic surgery (SURG) 2022 024 [email or web address] [facility] [address], [place], [id number], 4 13:03:09 Imaging None recorded. Medication Orders None recorded. Patient TargetsNo targets recorded. Patient InstructionsNo instructions recorded. Reason for Referral None Reported. Procedures Surgical History Date Name Laterality Status Provider Name and Address Organization Details Recorded Time 4 ORTHOPAEDIC SURGERY (SURG) completed Kirti Daniel [place] [facility] 05/12/2023 07:27:35 0 Orthopaedic Surgery completed Ky Quiñones [place] [facility] 10/31/2022 16:37:55 2 Orthopaedic Surgery completed Ky Quiñones [facility] 10/31/2022 16:37:34 Imaging [...] TWICE DAILY AT FIRST SIGN OF SYMPTOMS active Not Available Not Available No t Available senna 8.6 mg tablet TAKE 2 TABLETS BY MOUTH DAILY AT BEDTIME NEEDED FOR CONSTIPAT ION 07/25 completed Not Available Not Available Not Available amoxicilli n 500 mg tablet TAKE 4 TABLET(S) 1 HOUR PRIOR TO DENTAL APPOINTME NT. 04/25 completed Not Available Not Available Not Available terbinafin e HCl 250 mg tablet 1 TABLET ORALLY ONCE A DAY FOR 7 DAYS DAYS THEN STOP FOR 3 WEEKS REPEAT CYCLE 60 DAYS active Not Available Not Available No [...] TAKE 1 TABLET BY MOUTH EVERY DAY 04/25 completed Not Available Not Available Not Available irbesartan 150 mg tablet TAKE 1 TABLET BY MOUTH EVERY DAY active Not Available Not Available No t Available ondansetro n 4 mg disintegra ting tablet TAKE 1 TABLET BY MOUTH EVERY 8 HOURS NEEDED FOR NAUSEA AND VOMITING FOR 3 DAYS active Not Available Not Available No t Available metformin ER 500 mg tablet,ext ended [...] Available Not Available No t Available tadalafil 20 mg tablet TAKE ONE TABLET BY MOUTH EVERY OTHER DAY MAY CUT IN HALF DIRECTED active Not Available Not Available No t Available magnesium 04/25 completed Not Available Not Available Not Available multivitam in active Not Available Not Available Not Available BD Ultra-Fine Short Pen Needle 31 gauge x 08/23 USE 6 TIMES DAILY TO DELIVER INSULIN [...] Not Available Not Available No t Available Ozempic 1 mg/dose (4 mg/3 mL) subcutaneo us pen injector INJECT 1 MG UNDER THE SKIN EVERY 7 DAYS active Not Available Not Available No t Available Basaglar Tempo Pen (U-100) Insulin 100 unit/mL (3 mL) subcut pen,sensr Inject by subcutane ous route. active prn per blood sugar Not Available Not Available Not Available Ozempic 0.25 mg or 0.5 mg (2 mg/3 mL) subcutaneo us pen injector INJECT 0.5MG UNDER THE SKIN EVERY 7 DAYS 04/25 completed Not Available Not Available Not Available FreeStyle Debi 3 Morrill active Not Available Not Available Not Available FreeStyle Debi 3 Plus Sensor device active Not Available Not Available Not Available Vitals Date Recorded Body height Provider Name an d Address Organization Details Last Updated DateTime 10/31/2022 182.88 cm Ky Quiñones [facility] 10/31/2022 16:33:18 Date Recorded Body mass index (BMI) Body weight Provider Name and Address Organization Details Last Updated DateTime 10/31/2022 27.7 kg/m2 05398.84 g Ky Quiñones [facility] 10/31/2022 16:33:23 Date Recorded Body height Provider Name an d Address Organization Details Last Updated DateTime 05/12/2023 182.88 cm Kirti Daniel [facility] 05/12/2023 07:26:25 Date Recorded Body mass index (BMI) Body weight Provider Name and Address Organization Details Last Updated DateTime 05/12/2023 27.7 kg/m2 53311.84 g Kirti Daniel [facility] 05/12/2023 07:26:29 Date Recorded Body height Provider Name an d Address Organization Details Last Updated DateTime 07/26/2023 182.88 cm Kirti Daniel [facility] 07/26/2023 10:30:29 Date Recorded Body mass index (BMI) Body weight Provider Name and Address Organization Details Last Updated DateTime 07/26/2023 27.7 kg/m2 32338.84 g Kirti Daniel [facility] 07/26/2023 10:30:33 Date Recorded Body height Provider Name an d Address Organization Details Last Updated DateTime 04/25/2024 182.88 cm Kirti Daniel [facility] 04/25/2024 11:24:29 Social History Question Answer Notes LastModified by Organizat ion Details LastModified Time Tobacco Smoking Status Never Smoker Ky Rodriguezles [facility] 10/31/2022 16:31:27 What Is Your Level Of Alcohol Consumption? Occasional Information not available 10/31/2022 Do You Or Have You Ever Used E-cigarettes Or Vape? 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 Former Smokeless Tobacco User Information not available 10/31/2022 Sex: Unknown Functional Status None recorded. Mental Status None recorded. Family History Relationship Description Onset Age of this Age Resolved Age Notes LastModified by Organization Details LastModified Time Father Myocardial infarction unsure if CT or stroke Not available 10/31/2022 16:37:08 Father Construction of shunt triple bypass Not available 10/31/2022 16:37:20 Medical History Condition Response High Blood Pressure Y Irregular Heartbeat Y Diabetes Y Past Encounters Encounter ID Performer Location Encounter Start Date Encounter Closed Date Diagnosis/Indication Diagnosis SNOMED-CT Code Diagnosis ICD10 Code Diagnosis Note [id number] Virginia Rubin [place] Office [address] [address] 10/31/2022 15:22:59 10/31/2022 17:48:54 Osteoarthritis of right knee joint 0875106455 73418 M17.11 [id number] MG ALARCON MD [facility] [address] [place] [address] 05/12/2023 07:16:31 05/12/2023 09:13:47 Osteoarthritis of right knee joint 3801490216 47057 M17.11 [id number] BOGDAN SORENSEN NP [address] [address] 07/26/2023 10:27:36 07/26/2023 11:02:58 Osteoarthritis of right knee joint 0212879592 08142 M17.11 I discussed the TKA with the [...] instructed for routine follow up and x-rays. [id number] BOGDAN SORENSEN NP [address] [address] 04/25/2024 11:22:48 04/25/2024 12:00:49 Osteoarthritis of right knee joint 1825451616 72793 M17.11 I have discussed the TKA with the patient at the one year rita. We have discussed the continued use of strengthen ing and stretching and the continued attention to rehabilita tion of the quadriceps and functional rehabilita tion of the lower extremity in general. We discussed his expectatio ns from before his surgery to today especially because of his preop conditions with his prior femur fracture and ITB reconstruc tion surgeries. I think given all that, he's doing great. We have also discussed antibiotic prophylaxi s. Antibiotic prophylaxi s can continue at this point if the patient would like to, but after 1 year post op it is not mandatory from our standpoint . Follow up with us with any problems or concerns and a follow up appointmen t should be made in 4 to 5 years for new x-rays to be obtained. Health Concerns Section Related Observation LastModified by Organization Detai ls LastModified Time None Recorded Concern Status LastModified by Organization Details LastModified Time None Recorded Advance Directives Directive None Recorded Payers Encounter Date Sequence Insurance Name Policy Number Policy Johnson Covered Member ID Johnson Member ID Guarantor Name 10/31/2022 1 [employer] - CHOICE (POS II) Jeffery De Paz [id number] Rafiq De Paz 05/12/2023 1 [employer] - CHOICE (POS II) Jeffery De Paz [id number] Rafiq Baldev 07/26/2023 1 [employer] - CHOICE (POS II) Jeffery De Paz [id number] Rafiq De Paz 04/25/[address] [facility] (POS) Rafiq De Paz [id number] Rafiq De Paz Notes Date Note Type [...] years ago and this was done at [facility]. He continues to have right knee pain, just on the anterior medial aspects. It is worse with weightbearing. It affects his activities of daily living. His last steroid injection was more than 3 years ago. He also had a gel injection 3 years ago, which did not help his symptoms. He no longer takes NSAIDs because the stopped helping his symptoms. Virginia delcid [facility] 11/10/2022 21:42:15 05/12/2023 text/html He is 3-1/2 week s status post a right total knee replacement. He still has some pain and stiffness. MG ALARCON MD [address] [place] [address], [phone], [facility] 05/17/2023 12:36:05 [...] {{CANE CRUTCH WALKER AN ASSISTIVE DEVICE*}}. BOGDAN SORENSEN NP [address] [place], [address], [facility] 07/26/2023 11:00:27 04/25/2024 text/html The patient is 1 year status post a {{LEFT RIGHT* BILATE RAL}} total knee replacement with Dr. lAarcon. The patient has {{NO* MINIMAL SOME}} pain, but he states his knee feels alright. He states he doesn't feel like his knee is where he thought it would be at this point. He states physically, he has difficulty with flexion. There {{IS IS NOT*}} instability. The patient ambulates today {{WITH WITHOUT*}} {{CANE CRUTCH WALKER AN ASSISTIVE DEVICE*}}. BOGDAN SORENSEN NP [address] [place], [address], [facility] 04/25/2024 11:54:04
[2024-05-03 12:12] LABS: Glucose, Whole Blood 155 mg/dL (60-115)
[2024-05-03] MEDS: Lactated Ringers 1,000 ML 100 ML IVCONT (12:13)
--- NOTE | 2024-05-03 12:27 | MHC.SHP ---
Pre-Procedural Eval Section A - 24 Hr Update-Section A only Date of Service: 05/03/24 The patient is an INPATIENT: No Changes since office visit: No Cold of Flu in the past 2 weeks, No New Medical Problems, No Changes in Medication and No Patient answered all questions The patient has been examined within 24 hours of the surgical procedure. The History & Physical has been completed within 30 days and I have reviewed it.: Yes Section B - Complete if H&P > 30 days Chief Complaint: screening,gerd, Allergies: Allergies Allergy/AdvReac Type Severity Reaction Status Date / Time No Known Allergies Allergy Verified 05/03/24 11:49 Plan I have reviewed the history and physical and performed a pertinent physical examination on my patient. No changes have occurred unless specified. Time Spent With Patient Time: Total time managing care of this patient today ____ minutes.
[2024-05-03 13:22] VITALS: BP 102/55; PULSE 99; RESP 18; TEMP 36.4; O2SAT 99
[2024-05-03 13:41] VITALS: BP 122/69; PULSE 80; RESP 17; TEMP 36.1; O2SAT 96
--- NOTE | 2024-05-03 14:03 | OP_ITS ---
DATE OF SERVICE: 05/03/2024 SURGEON: Kulwant León MD INDICATIONS: 1. Sutton esophagus. 2. Colon cancer screening. PREOPERATIVE DIAGNOSIS: POSTOPERATIVE DIAGNOSIS: PROCEDURE PERFORMED: Upper endoscopy with biopsy, colonoscopy to the cecum with biopsy. ESTIMATED BLOOD LOSS: COMPLICATIONS: ANESTHESIA: Monitored anesthesia care. ASSISTANTS: SPECIMENS: DESCRIPTION OF PROCEDURE: A history and physical was performed. The risks and benefits of the procedure were explained to the patient and informed consent was obtained. The patient was placed in the left lateral decubitus position. The Olympus video gastroscope was introduced into the esophagus, stomach, and duodenum. Examination was performed and the scope was removed. He was repositioned for colonoscopy. A digital rectal exam was performed and was found to be normal. The Olympus pediatric video colonoscope was introduced into the rectum and advanced to the cecum with the assistance of abdominal wall pressure. The cecum was identified by transillumination, palpation, and identification of ileocecal valve. Examination was performed and the scope was removed. He tolerated the procedure well and was returned to recovery area in stable condition. FINDINGS: Upper endoscopy, esophagus: The esophagus showed irregular EG junction. There were no raised lesions or ulcerated areas. There was no esophagitis. Biopsies were obtained because of the patient's history of Sutton esophagus. Stomach: The stomach showed no evidence of masses, ulcers, or polyps. Antral biopsies were obtained. Duodenum: The bulb and 2nd portion were normal. Colonoscopy: The terminal ileum was not examined. The visualized colonic mucosa was normal. In the right side of the colon, there was a moderate amount of undigested food and liquid. This was washed and suctioned and did limit the views in the right colon and cecum. Two polyps were identified. Both measured less than 10 mm and were removed with a biopsy forceps. These were located at 20 cm and in the rectum. No other polyps were seen. Retroflexed examination showed some moderate-sized internal hemorrhoids. IMPRESSION: 1. Sutton esophagus. 2. Colon polyps. RECOMMENDATION: Follow up the biopsy results. MD PEG Guerin/CLARICE / [id number]
== END 2024-05-03 14:02 | disposition home or self-care (01) ==
PROVIDERS: PCP Physician Assistant; Visit Provider Internal Medicine Gastroenterology
PROC: (CPT 45380; principal; 2024-05-03 12:20)
DX: Z12.11 Encounter for screening for malignant neoplasm of colon (principal); Z83.719 Family history of colon polyps, unspecified; D12.8 Benign neoplasm of rectum; K63.5 Polyp of colon; K64.8 Other hemorrhoids; K21.9 Gastro-esophageal reflux disease without esophagitis; K22.70 Barrett's esophagus without dysplasia; E78.5 Hyperlipidemia, unspecified; I49.3 Ventricular premature depolarization; M19.90 Unspecified osteoarthritis, unspecified site; E11.319 Type 2 diabetes mellitus with unspecified diabetic retinopathy without macular edema; E11.40 Type 2 diabetes mellitus with diabetic neuropathy, unspecified; Z79.4 Long term (current) use of insulin; Z79.85 Long-term (current) use of injectable non-insulin antidiabetic drugs; Z79.899 Other long term (current) drug therapy; Z98.890 Other specified postprocedural states
CPT/HCPCS: 45380; 43239; 82947; 88305; 88313; 88342; J2003; J2250; J2704